=== PATIENT | male | born 1985 ===

== ENCOUNTER 2023-06-10 05:51 | Inpatient (IN) | payer OTHER ==
[~2023-06-10] VITALS: Ht 170.2 cm; Wt 81.1 kg
[~2023-06-10 05:51] MED LIST: ILOTYCIN5 MG/GM OP
[2023-06-10 06:18] LABS: BASO # 0.1 K/mm3 (0.0-0.2); BASO % 0.9 % (0.0-2.0); EOS # 0.1 K/mm3 (0.0-0.7); EOS % 0.9 % (0.0-4.0); GRAN # 7.8 K/mm3 (1.4-6.5); GRAN % 56.8 % (42.2-75.2); HEMATOCRIT 48.4 % (42.0-52.0); LYMPH # 4.5 K/mm3 (1.2-3.4); LYMPH % 33.1 % (20.0-51.0); MEAN CELL VOLUME 86 fl (80.0-100.0); MEAN CORPUSCULAR HEMOGLOBIN 30 pg (27-31); MEAN CORPUSCULAR HGB CONC 35 g/dl (33.0-37.0); MEAN PLATELET VOLUME 10.1 fl (7.4-10.4); MONO # 1.1 K/mm3 (0.1-0.6); PLATELET COUNT 255 K/mm3 (130-400); RED BLOOD COUNT 5.61 M/mm3 (4.20-5.60); REDCELL DISTRIBUTION WIDTH-CV 12.3 % (11.5-14.5)
[2023-06-10 06:41] LABS: ALBUMIN 4.4 gm/dL (3.5-5.0); BILIRUBIN,TOTAL 0.4 mg/dL (0.2-1.2); CALCIUM 9.8 mg/dL (8.4-10.2); CREATININE, serum 1.13 mg/dL (0.72-1.25)
[2023-06-10 07:21] LABS: ARTERIAL BLD GAS O2 SATURATION 98.7 % (92-100); ARTERIAL BLD GAS TCO2 CT 20.5; ARTERIAL BLOOD GAS BASE EXCESS 0.7 (-2-2); ARTERIAL BLOOD GAS HCO3 19.8 meq/L (22-26); ARTERIAL BLOOD GAS pH 7.59 (7.35-7.45)
[2023-06-10 07:24] LABS: ARTERIAL BLOOD GAS PCO2 21.1 mmHg (35-45)
[2023-06-10 07:55] LABS: ACETAMINOPHEN < 1.0 ug/mL (10-30); SALICYLATE < 5.0 mg/dL (15.0-30.0)
[2023-06-10] MEDS ORDERED: PROZAC 10MG10 MG PO (11:15)
[2023-06-10 14:19] VITALS: BP 117/69; PULSE 65; TEMP 97.4
[2023-06-10 14:20] VITALS: BP_SYST 117
--- NOTE | 2023-06-10 15:54 | NUR ---
Patient arrived to room 308 at approximately 1510. Pt a/o x4. Currently rates epigastric pain 2/10, declines needs for pain medication. Denies nausea or vomitting. Bolus of NS infusing to IV site on LFA without s/s complications. Reports last bowel movement was a small liquid bowel movement this morning. Patient informed of need for stool sample- collection had placed in toliet. Also informed patient of need for accurate I/O. Verbalizes understanding.
[2023-06-10 17:32] VITALS: BP_SYST 117
[2023-06-10 19:17] VITALS: BP 141/76; PULSE 62; TEMP 98.6
--- NOTE | 2023-06-10 19:25 | NUR ---
NS bolus x3 liters completed. LR now infusing at 150ml/hr. New IV site started to RAC since LR and Zosyn are not compatable. Zosyn infusing to RAC and LR infusing to LFA. Pt had a liquid stool- stool specimen sent to lab. Continues to rate pain 2/10 but declines need for pain medication. Independent in room. Denies needs at this time.
[2023-06-10 19:45] VITALS: BP_SYST 141
[2023-06-10 20:43] LABS: CLOSTRIDIUM DIFF A/B NEG
[2023-06-10 23:24] VITALS: BP 160/90; PULSE 61; TEMP 98.5
[2023-06-11 00:05] VITALS: BP 146/84; PULSE 61
[2023-06-11 03:40] VITALS: BP 135/73; PULSE 57; TEMP 98
[2023-06-11 06:44] LABS: BASO # 0.1 K/mm3 (0.0-0.2); BASO % 0.7 % (0.0-2.0); EOS # 0.1 K/mm3 (0.0-0.7); EOS % 0.6 % (0.0-4.0); GRAN # 5.8 K/mm3 (1.4-6.5); GRAN % 52.9 % (42.2-75.2); HEMOGLOBIN 15.5 g/dl (13.5-18.0); LYMPH % 36.3 % (20.0-51.0); MEAN CELL VOLUME 88 fl (80.0-100.0); MEAN CORPUSCULAR HEMOGLOBIN 30 pg (27-31); MEAN CORPUSCULAR HGB CONC 34 g/dl (33.0-37.0); MEAN PLATELET VOLUME 10.9 fl (7.4-10.4); MONO % 9.2 % (1.7-9.3); PLATELET COUNT 197 K/mm3 (130-400); RED BLOOD COUNT 5.12 M/mm3 (4.20-5.60); REDCELL DISTRIBUTION WIDTH-CV 12.8 % (11.5-14.5)
[2023-06-11 07:01] LABS: CALCIUM 9.1 mg/dL (8.4-10.2); MAGNESIUM 1.7 mg/dL (1.6-2.6); POTASSIUM 3.7 mmol/L (3.5-4.5)
[2023-06-11 07:31] VITALS: BP 134/80; PULSE 55; TEMP 98.1
--- NOTE | 2023-06-11 07:56 | NUR ---
Patient alert and oriented x4. Shift assessment complete, no new variances noted. Patient states he feels better and denies ongoing nausea/vomiting. Patient denies diarrhea at this time, per overnight nurse, diarrhea continued last night. Patient passing gas. Abdomen soft and nontender, all quadrants have audible bowel sounds. Patient urinating with no issues per overnight nurse, specimen collection container provided to patient. Denies pain. Currently in bed with call light in reach, all needs met at this time.
[2023-06-11] MEDS ORDERED: ZOFRAN ODT4 MG PO (09:06)
[2023-06-11] MEDS ORDERED: CIPRO 500MG TA500 MG PO (09:07)
[2023-06-11 09:17] VITALS: BP_SYST 134
--- NOTE | 2023-06-11 10:02 | NUR ---
Discharge instructions discussed with patient including follow-up appointments, medications, and education packets. Patient verbalized understanding. IV discontinued to right AC and left forearm with no complications. No telemetry on. Patient escorted out by staff via ambulation to ER entrance.
--- NOTE | 2023-06-11 11:44 | NUR ---
SW met with patient to complete intake, pateient was in the process of discharging home with (Analisa Genao) contact information confirmed on file. Patient reports that he needs to get established with healthcare and PCP with [facility] in [place]. Patient is familiar with area and process. Patient reports that [facility] choice is [facility]. Patient reports that he is independent with ADLs and currently does not use any DME's. Patient does not have a DPOA on file at this time. Patient was provided information, declines completing at this time. No further needs.
== END 2023-06-11 09:50 | disposition home or self-care (01) | DRG 872 ==
LOC: COL.ER 05:51 → MEDICAL 08:40
PROVIDERS: Emergency Medicine; ADMIT Internal Medicine
DX: A41.9 Sepsis, unspecified organism (principal); E87.20 Acidosis, unspecified; R65.20 Severe sepsis without septic shock; F17.210 Nicotine dependence, cigarettes, uncomplicated; E87.6 Hypokalemia; Z90.89 Acquired absence of other organs; Z90.49 Acquired absence of other specified parts of digestive tract; Z23 Encounter for immunization
CPT/HCPCS: J0780; J1650; J2405; J2543; J3010; J7030; J7120; Q9967